=== PATIENT | male | born 1955 | race Caucasian/White ===

== ENCOUNTER 2017-02-26 02:49 | Emergency (ER) | payer OTHER, MEDICAID ==
[~2017-02-26] VITALS: Ht 162.6 cm; Wt 79.5 kg
[~2017-02-26 02:49] MED LIST: AZIT250T94 PO; CEPH-443 PO; CETI10CA PO; UDROBDM PO
[2017-02-26 03:08] VITALS: Ht 162.6 cm; Wt 79.5 kg
[2017-02-26] MEDS ORDERED: morphine 4 MG/ML VIAL IV STA (06:19)
[2017-02-26] MEDS ORDERED: ONDANSETRON (ODT) 4 MG TAB ODT STA (06:19)
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
[2017-02-26 08:34] LABS: ANION GAP 21 (8-16); BLOOD UREA NITROGEN 10 mg/dl (7-20); CALCIUM 8.7 mg/dl (8.4-10.2); CARBON DIOXIDE 21 mmol/L (21-31); CHLORIDE 109 mmol/L (97-110); CREATININE 0.89 mg/dl (0.61-1.24); GLUCOSE 139 mg/dl (70-220); SODIUM 147 mmol/L (135-144)
[2017-02-26 09:00] LABS: TROPONIN-I < 0.012 ng/ml (0.00-0.12)
[2017-02-26 10:06] LABS: ABNORMAL IP MESSAGE 1; BASOPHILS % 0.1 % (0.0-2.0); EOSINOPHILS % 0.1 % (0.0-7.0); HEMATOCRIT 36.8 % (42.0-52.0); HEMOGLOBIN 12.6 g/dl (14.0-18.0); LYMPHOCYTES # 0.6 10^3/ul (0.8-2.9); MEAN CORPUSCULAR HEMOGLOBIN 29.9 pg (29.0-33.0); MEAN CORPUSCULAR HGB CONC 34.2 g/dl (32.0-37.0); MEAN CORPUSCULAR VOLUME 87.4 fl (82.0-101.0); MONOCYTE # 0.4 10^3/ul (0.3-0.9); MONOCYTES % 4.6 % (0.0-11.0); NEUTROPHILS % 87.8 % (39.0-77.0); PLATELET COUNT 207 10^3/UL (140-415); POSITIVE DIFF @See below; RED BLOOD COUNT 4.21 10^6/ul (4.70-6.10); RED CELL DISTRIBUTION WIDTH 13.4 % (11.5-14.5); WHITE BLOOD COUNT 7.9 10^3/ul (4.8-10.8)
[2017-02-26] MEDS ORDERED: IBUP-1542 PO (10:08)
== END 2017-02-26 10:23 | disposition home or self-care (01) ==
LOC: FTE 02:49
DX: S29.9XXA Unspecified injury of thorax, initial encounter (principal); E11.9 Type 2 diabetes mellitus without complications; I10 Essential (primary) hypertension; R51 Headache; Y04.8XXA Assault by other bodily force, initial encounter
CPT/HCPCS: 70450; 70486; 71010; 73610; 80048; 84484; 85025; 93005; 96374; 99285; J2270

== ENCOUNTER 2017-03-07 00:59 | Emergency (ER) | payer OTHER ==
[~2017-03-07] VITALS: Ht 167.6 cm; Wt 84.1 kg
[~2017-03-07 00:59] MED LIST changes: +IBUP-1542 PO
[2017-03-07 01:06] VITALS: Ht 167.6 cm; Wt 84.1 kg
[2017-03-07] MEDS ORDERED: SOD CHLORIDE 0.9% 1,000 ML IV STA (02:30)
[2017-03-07] MEDS ORDERED: ONDANSETRON 4 MG INJ IV STA (02:30)
[2017-03-07] MEDS ORDERED: morphine 4 MG/ML VIAL IV STA (02:30)
[2017-03-07] MEDS ORDERED: IOHEXOL 300MG/ML 150 ML BTL ONE (02:41)
[2017-03-07] MEDS ORDERED: SOD CHLORIDE 0.9% 100 ML ONE (02:41)
[2017-03-07] MEDS ORDERED: MTF1000T PO (03:20)
[2017-03-07 03:21] LABS: EOSINOPHILS % 0.3 % (0.0-7.0); HEMATOCRIT 41.3 % (42.0-52.0); LYMPHOCYTES # 1.3 10^3/ul (0.8-2.9); LYMPHOCYTES % 20.3 % (15.0-51.0); MEAN CORPUSCULAR HEMOGLOBIN 29.9 pg (29.0-33.0); MEAN CORPUSCULAR HGB CONC 33.9 g/dl (32.0-37.0); MEAN CORPUSCULAR VOLUME 88.2 fl (82.0-101.0); MEAN PLATELET VOLUME 9.9 fl (7.4-10.4); MONOCYTE # 0.2 10^3/ul (0.3-0.9); MONOCYTES % 2.3 % (0.0-11.0); NEUTROPHILS % 76.6 % (39.0-77.0); PLATELET COUNT 208 10^3/UL (140-415); POSITIVE DIFF @See below; RED BLOOD COUNT 4.68 10^6/ul (4.70-6.10); RED CELL DISTRIBUTION WIDTH 12.8 % (11.5-14.5); WHITE BLOOD COUNT 6.6 10^3/ul (4.8-10.8)
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
--- NOTE | 2017-03-07 03:34 | RADRPT ---
PROCEDURE: XR chest and ribs CLINICAL INDICATION: Left chest pain TECHNIQUE: Frontal view of the chest and multiple oblique views of the left ribs were obtained. T he images were reviewed on a PACS workstation. COMPARISON: 02/26/2017 FINDINGS: The heart size is top normal. The aorta is minimally ectatic. Subsegmental atelectasis of the right lung base is seen.. No acute infiltrate, pleural effusion, or overt congestive heart failure is se en. Two views of the left ribs show no definite fracture. No pneumothorax is seen.. IMPRESSION: No definite fracture or pneumothorax. Note should be made that hairline rib fractures may initially not be well seen. RPTAT: HLBE Physician Dipti Date Time Electronically viewed and signed by Evie Schmidt Physician on 03/07/2017 03:34 LE/
--- NOTE | 2017-03-07 03:34 | RADRPT ---
PROCEDURE: XR chest and ribs CLINICAL INDICATION: Left chest pain TECHNIQUE: Frontal view of the chest and multiple oblique views of the left ribs were obtained. T he images were reviewed on a PACS workstation. COMPARISON: 02/26/2017 FINDINGS: The heart size is top normal. The aorta is minimally ectatic. Subsegmental atelectasis of the right lung base is seen.. No acute infiltrate, pleural effusion, or overt congestive heart failure is se en. Two views of the left ribs show no definite fracture. No pneumothorax is seen.. IMPRESSION: No definite fracture or pneumothorax.. . Note should be made that hairline rib fractures may initial ly not be well seen. RPTAT: HLBE Physician Dipti Date Time Electronically viewed and signed by Evie Schmidt Physician on 03/07/2017 03:33 LE/
[2017-03-07 03:39] LABS: ALANINE AMINOTRANSFERASE 62 IU/L (13-69); ALBUMIN 4.6 g/dl (3.3-4.9); ALBUMIN/GLOBULIN RATIO 1.27; ALKALINE PHOSPHATASE 183 IU/L (42-121); ANION GAP 16 (8-16); ASPARTATE AMINO TRANSFERASE 35 IU/L (15-46); BILIRUBIN,INDIRECT 0.7 mg/dl (0-1.1); BILIRUBIN,TOTAL 0.7 mg/dl (0.2-1.3); BLOOD UREA NITROGEN 14 mg/dl (7-20); CARBON DIOXIDE 28 mmol/L (21-31); CHLORIDE 102 mmol/L (97-110); CREATININE 0.87 mg/dl (0.61-1.24); GLUCOSE 146 mg/dl (70-220); POTASSIUM 4.2 mmol/L (3.5-5.1); SODIUM 142 mmol/L (135-144); TOTAL PROTEIN 8.2 g/dl (6.1-8.1)
[2017-03-07 03:42] LABS: ADD UMIC YES; UR ASCORBIC ACID NEGATIVE (NEGATIVE); UR BILIRUBIN (Dip) NEGATIVE (NEGATIVE); UR BLOOD (Dip) NEGATIVE (NEGATIVE); UR CLARITY CLEAR (CLEAR); UR COLOR YELLOW (YELLOW); UR GLUCOSE (Dip) 1+ mg/dL (NEGATIVE); UR KETONES (Dip) 2+ mg/dL (NEGATIVE); UR LEUKOCYTE ESTERASE (Dip) NEGATIVE Leu/ul (NEGATIVE); UR NITRITE (Dip) NEGATIVE (NEGATIVE); UR RBC 0 /HPF (0-5); UR SPECIFIC GRAVITY (Dip) 1.019 (1.003-1.030); UR TOTAL PROTEIN (Dip) 1+ mg/dl (NEGATIVE); UR UROBILINOGEN (Dip) 2+ mg/dL (NEGATIVE)
--- NOTE | 2017-03-07 03:47 | RADRPT ---
PROCEDURE: CT Abdomen and Pelvis with contrast. CLINICAL INDICATION: Abdominal pain TECHNIQUE: CT scan of the abdomen and pelvis with contrast was performed on a multi-detector high- resolution CT scanner. The patient was scanned following the intravenous administration of 100 cc o f Omnipaque 300. Coronal and sagittal reformatted images were obtained from the axial source images . Images were reviewed on a high-resolution PACS workstation. The total exam CTDI equals 14.19 mGy a nd the total exam DLP equals 930.86 mGy-cm. One or more the following dose reduction techniques were utilized: Automated exposure control, adjus tment of the mA and / or kV according to patient's size, or use of iterative reconstruction techniqu e. COMPARISON: None. FINDINGS: Linear atelectasis/fibrosis at lung bases. No pneumoperitoneum is seen. No abnormality seen in the l eft kidney. There is an approximate 1.9 cm cyst in the mid right kidney. No abnormality is seen in t he pancreas, spleen, adrenals or gallbladder. No biliary dilatation is seen. There is coronary arter y calcification. Calcification in region of aortic valve. There is an small pericardial effusion. No abnormality is seen in the liver. Very small umbilical hernia containing fat only. Calcification in abdominal aorta, superior mesenteric, bilateral renal and bilateral iliac arteries. No abdominal ao rtic aneurysm is seen. No ascites is seen. The prostate does not appear to be enlarged. No definite abnormality of the low volume bladder is seen. Scattered diverticula in transverse colon. There is n o specific evidence of acute diverticulitis seen. There is no evidence of acute appendicitis. No dil ated small bowel loops are seen. No definite abnormality of the stomach is seen. Bilateral lower inguinal upper femoral nodes largely fatty replaced each measuring approximate 1.8 cm short axis. Mi nimal osteoarthrosis at hips. Mild degenerative changes at sacroiliac joints. Degenerative changes i n thoracolumbar spine. Central spinal stenosis in lumbar spine. Suggestive of diffuse idiopathic ske letal hyperostosis in lower thoracic spine IMPRESSION: Atherosclerosis. Coronary artery calcification. No acute abnormality visualized. Please see above. RPTAT: HJES .Lamine Garcia MD, MD Date Time Electronically viewed and signed by .Lamine Garcia MD, on 03/07/2017 03:47 .S/
[2017-03-07 03:52] LABS: TROPONIN-I < 0.012 ng/ml (0.00-0.12)
[2017-03-07] MEDS ORDERED: ACETAMINOPHEN 500 MG TAB PO STA (04:27)
[2017-03-07 04:36] VITALS: BP 165/79; PULSE 100; RESP 19; TEMP 100.6
--- NOTE | 2017-03-07 05:44 | EN ---
Date/Time of Note Date/Time of Note DATE: 03/07/17 TIME: 05:44 ER Progress Note I reviewed the patient's labs and x-rays. Her pain and nonspecific shortness of the site likely related to rib fractures. Patient will be discharged home with pain medication. Follow-up with PCP. No evidence of any pathological or intrinsic lung disease causing shortness of breath. KIMBERLY GERARD Mar 07, 2017 05:44
[2017-03-07] MEDS ORDERED: HYDR-902 PO (05:50)
[2017-03-07] MEDS ORDERED: METF500T4 PO (06:25)
== END 2017-03-07 06:15 | disposition home or self-care (01) ==
LOC: FTE 00:59 → E/R 06:15
DX: R06.02 Shortness of breath (principal); E11.9 Type 2 diabetes mellitus without complications; R11.0 Nausea; Z79.84 Long term (current) use of oral hypoglycemic drugs
CPT/HCPCS: 36415; 71010; 71100; 74177; 80053; 81001; 82962; 83690; 84484; 85025; 93005; 96374; 96375; 99285; J2270; J2405; J7030; Q9967

== ENCOUNTER 2018-08-30 14:04 | Emergency (ER) | payer OTHER ==
[~2018-08-30] VITALS: Ht 175.3 cm; Wt 84.0 kg
[~2018-08-30 14:04] MED LIST changes: -AZIT250T94 PO; -CEPH-443 PO; -CETI10CA PO; +GUAI5SYR2 PO; +HYDR-3980 PO; +METF-849 PO; -UDROBDM PO
[2018-08-30 14:13] VITALS: Ht 175.3 cm; Wt 84.0 kg
[2018-08-30] MEDS ORDERED: KETOROLAC 30 MG INJ IM STA (20:40)
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
[2018-08-30] MEDS ORDERED: IBUP-1561 PO (21:23)
[2018-08-30 21:46] VITALS: BP 157/83; PULSE 84; RESP 18
== END 2018-08-30 21:48 | disposition home or self-care (01) ==
LOC: FTE 14:04
DX: M79.602 Pain in left arm (principal); E11.9 Type 2 diabetes mellitus without complications; I10 Essential (primary) hypertension; M79.605 Pain in left leg; Z79.84 Long term (current) use of oral hypoglycemic drugs
CPT/HCPCS: 73080; 73110; 73510; 73550; 96372; 99284; J1885